=== PATIENT | female | born 1955 | race Caucasian/White ===

== ENCOUNTER 2017-03-15 14:42 | Emergency (ER) | payer MEDICARE, OTHER ==
[~2017-03-15] VITALS: Ht 167.6 cm; Wt 74.0 kg
[2017-03-15 14:49] VITALS: BP 147/95
[2017-03-15] MEDS ORDERED: TETanus/Pertussis (Acell)/Diphther VAC/PF (Tdap-Adult) 0.5ml syringe IM ONE (14:55)
[2017-03-15] MEDS ORDERED: BUPIVAcaine/PF 2.5 mg/ml (0.25%) 30ml vial IJ ONE (14:55)
[2017-03-15] MEDS ORDERED: SULF1TAB49 PO (15:02)
[2017-03-15] MEDS ORDERED: LORA0.5T PO (15:02)
[2017-03-15] MEDS ORDERED: bacitracin 15gm ointment TP ONE (16:00)
== END 2017-03-15 16:22 | disposition home or self-care (01) ==
LOC: ER 14:43
DX: S61.411A Laceration without foreign body of right hand, initial encounter (principal); Z88.0 Allergy status to penicillin; Z88.1 Allergy status to other antibiotic agents; Z91.040 Latex allergy status; W25.XXXA Contact with sharp glass, initial encounter; Y93.89 Activity, other specified; Y92.89 Other specified places as the place of occurrence of the external cause; Y99.8 Other external cause status
CPT/HCPCS: 12001; 90471; 90715; 99283; A6222; J3490